=== PATIENT | female | born 1950 ===

== ENCOUNTER → 2016-11-15 | Outpatient (REF) ==
[2016-11-15 17:04] LABS: BASOPHILS % (AUTO) 1 % (0-2); EOSINOPHILS # (AUTO) 0.2 10^3uL; EOSINOPHILS % (AUTO) 3 % (0-4); LYMPHOCYTES # (AUTO) 1.7 X10^3; MEAN CORPUSCULAR HEMOGLOBIN 30.4 PG (26.0-34.0); MEAN CORPUSCULAR HGB CONC 32.9 g/dL (31.0-37.0); MEAN CORPUSCULAR VOLUME 92 FL (80-100); MEAN PLATELET VOLUME 11.3 FL (6.0-9.5); MONOCYTES # (AUTO) 0.6 X10^3; MONOCYTES % (AUTO) 9 % (3-11); NEUTROPHILS # (AUTO) 3.9 X10^3; NEUTROPHILS % (AUTO) 61 % (51-67); PLATELET COUNT 188 10^3uL (150-450); WHITE BLOOD COUNT 6.42 10^3uL (4.0-11.0)
[2016-11-15 17:10] LABS: ALBUMIN 4.3 g/dL (3.4-5.0); ALKALINE PHOSPHATASE 94 U/L (38-126); ANION GAP 17.6 MEQ/L (3-15); BUN/CREATININE RATIO 36 (10-20); TOTAL PROTEIN 8.1 g/dL (6.4-8.5)
== END ==
LOC: CLAB.BLUES 16:09
PROVIDERS: ATTEND Family Medicine
DX: I10 Essential (primary) hypertension (principal); G62.9 Polyneuropathy, unspecified; I73.9 Peripheral vascular disease, unspecified
CPT/HCPCS: 80053; 80061; 83036; 85025